=== PATIENT | female | born 2000 | race Caucasian/White ===

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

== ENCOUNTER 2018-06-29 14:47 | Emergency (ER) | payer BC ==
--- NOTE | 2018-06-29 15:57 | ED ---
Substance Abuse/Use - HPI Summary HPI Summary: This patient is a 18 year old F brought to ED via EMS with a chief complaint of alcohol intoxication since earlier today. Patient rates pain 0/10 in severity. Symptoms aggravated by nothing. Symptoms alleviated by nothing. Patient denies nausea and any pain. Patient was found lying in bathroom in vomit. Patient denies nausea and pain. Patient has an insulin pump in right gluteus. PMHx of DM , seizures, Hashimotos encephalopathy. FHx DM but no renal disease, respiratory disease, seizure disorder. Patient drinks alcohol, uses marijuana, and has never smoked tobacco. - History Of Current Complaint Chief Complaint: EDSubstanceAbuse Stated Complaint: ETOH PER EMS Time Seen by Provider: 06/29/18 15:14 Hx Obtained From: Patient Onset/Duration of Drug/ETOH Abuse: Hours Ingestion History: Type/Name Of Drug - EtOH Overdose Characteristics: Oral Severity Initially: Mild Severity Currently: None Aggravating Factor(s): Nothing Alleviating Factor(s): Nothing Associated Signs And Symptoms: Negative - Nausea, vomiting - Allergies/Home Medications Allergies/Adverse Reactions: Allergies Allergy/AdvReac Type Severity Reaction Status Date / Time No Known Allergies Allergy Verified 06/29/18 18:20 Home Medications: Home Medications Insulin Aspart [Novolog] 100 unit SC TID WITH MEALS 06/29/18 [History Confirmed 06/29/18] Levothyroxine Sodium [Synthroid] 300 mcg PO DAILY WITH MEAL 06/29/18 [History Confirmed 06/29/18] PMH/Surg Hx/FS Hx/Imm Hx Previously Healthy: No Endocrine/Hematology History: Reports: Hx Diabetes Neurological History: Reports: Hx Seizures, Other Neuro Impairments/Disorders - Nona's encephalopathy Infectious Disease History: No Infectious Disease History: Denies: Traveled Outside the [place] in Last 30 Days - Family History Known Family History: Positive: Diabetes, Respiratory Disease, Seizure Disorder - Social History Alcohol Use: Rare Hx Substance Use: Yes Substance Use Type: Reports: Marijuana Substance Use Comment - Amount & Last Used: yesterday Hx Tobacco Use: No Smoking Status (MU): Never Smoked Tobacco Review of Systems Negative: Vomiting, Nausea Psychological: Other - Alcohol intoxication All Other Systems Reviewed And Are Negative: Yes Physical Exam - Summary Physical Exam Summary: VITAL SIGNS: Reviewed. GENERAL: Patient is a well-developed and nourished female who is lying comfortable in the stretcher. Patient is not in any acute respiratory distress. EtOH intoxication. Alcohol in breath. Patient has insulin pump in right gluteus. HEAD AND FACE: No signs of trauma. No ecchymosis, hematomas or skull depressions. No sinus tenderness. EYES: PERRLA, EOMI x 2, No injected conjunctiva, no nystagmus. EARS: Hearing grossly intact. Ear canals and tympanic membranes are within normal limits. MOUTH: Oropharynx within normal limits. NECK: Supple, trachea is midline, no adenopathy, no JVD, no carotid bruit, no c- spine tenderness, neck with full ROM. CHEST: Symmetric, no tenderness at palpation LUNGS: Clear to auscultation bilaterally. No wheezing or crackles. CVS: Regular rate and rhythm, S1 and S2 present, no murmurs or gallops appreciated. ABDOMEN: Soft, non-tender. No signs of distention. No rebound no guarding, and no masses palpated. Bowel sounds are normal. EXTREMITIES: FROM in all major joints, no edema, no cyanosis or clubbing. NEURO: Alert and oriented x 3. No acute neurological deficits. Speech is normal and follows commands. Answered questions appropriately. SKIN: Dry and warm Triage Information Reviewed: Yes Vital Signs On Initial Exam: Initial Vitals Temp Pulse Resp BP Pulse Ox 97.0 F 86 16 104/72 99 06/29/18 14:49 06/29/18 14:49 06/29/18 14:49 06/29/18 14:49 06/29/18 14:49 Vital Signs Reviewed: Yes Diagnostics - Vital Signs Vital Signs Temp Pulse Resp BP Pulse Ox 06/29/18 15:07 96.6 F 80 20 114/76 96 06/29/18 14:49 97.0 F 86 16 104/72 99 - Laboratory Lab Results: Lab Results 06/29/18 Range/Units 15:28 POC Glucose (mg/dL) 245 H (70-100) mg/dL Result Diagrams: 06/29/18 15:50 06/29/18 16:26 Lab Statement: Any lab studies that have been ordered have been reviewed, and results considered in the medical decision making process. Course/Dx - Course Assessment/Plan: This patient is a 18-year-old female who presents to the emergency department via ambulance with a chief complaint of having alcohol intoxication. The patient is lethargic, alcohol in her breath however she answers appropriately to all questions. During the physical exam that the patient has an insulin pump in the right buttex. Finger stick was obtained. The patient was placed in IV fluids and in a platform power technician. Blood test results without any significant abnormality except for sodium of 134, chloride 112, carbon dioxide is 16, glucose 174, calcium is 6.1, administering so the corrected calcium is 6.9. Serum alcohol level is 178. The patients was given calcium by mouth. 4 hours later the patient is alert and oriented 3, the patient is sober and she has no other complaints. Fingerstick is 143. At this point the patient will be discharged home with follow-up with primary care physician. The patient will be discharged home with her roommates. Patient is ambulating home and drinking fluids without any nausea vomiting. - Diagnoses Provider Diagnoses: Alcohol intoxication, Hypocalcemia, Hyponatremia Discharge - Sign-Out/Discharge Documenting (check all that apply): Patient Departure - Discharge Patient Received Moderate/Deep Sedation with Procedure: No - Discharge Plan Condition: Stable Disposition: HOME Patient Education Materials: Alcohol Intoxication (ED) Referrals: [facility] [[employer] [facility], OTHER] - Additional Instructions: Follow-up with your banner in 2 days. RETURN THE ER FOR CHANGING OR WORSENING SYMPTOMS. - Billing Disposition and Condition Condition: STABLE Disposition: Home - Attestation Statements Document Initiated by An: Yes Documenting Scribe: Case Kitchen Provider For Whom An is Documenting (Include Credential): Danny Weber MD Scribe Attestation: Case Batista, scribed for Danny Weber MD on 06/29/18 at 2136. Scribe Documentation Reviewed: Yes Provider Attestation: The documentation as recorded by the Case vargas accurately reflects the service I personally performed and the decisions made by me, Danny Weber MD Status of Scribe Document: Viewed
[2018-06-29 16:17] LABS: ALT 12 U/L (7-52); Albumin/Globulin Ratio 1.4 (1-3); Alkaline Phosphatase 47 U/L (34-104); BUN/Creatinine Ratio 17.1 (8-20); Blood Urea Nitrogen 7 mg/dL (6-24); CO2 Carbon Dioxide 16 mmol/L (22-32); EGFR African American 239.3 (>60); EGFR Non-African American 197.8 (>60); Globulin 2.1 g/dL (2-4); Glucose 174 mg/dL (70-100); Sodium 134 mmol/L (135-145); Total Protein 5.1 g/dL (6.4-8.9)
[2018-06-29 16:23] LABS: Anion Gap 6 mmol/L (2-11); Calcium 6.1 mg/dL (8.6-10.3); Chloride 112 mmol/L (101-111)
[2018-06-29 16:24] LABS: ABS Lymphocytes 1.4 10^3/ul (1.0-4.8); ABS Monocytes 0.3 10^3/ul (0-0.8); ABS Neutrophils 5.3 10^3/ul (1.5-7.7); Eosinophil % 0.7 %; Hematocrit 36 % (35-47); Mean Corpuscular HGB Conc 33 g/dL (31-36); Mean Corpuscular Hemoglobin 30 pg (27-31); Mean Corpuscular Volume 91 fL (80-97); Mean Platelet Volume 8.8 fL (7.4-10.4); Platelet Count 208 10^3/uL (150-450); Red Cell Distribution Width 15 % (10.5-15); White Blood Count 7.1 10^3/uL (3.5-10.8)
[2018-06-29 16:49] LABS: TSH (Thyroid Stimulating Horm) 0.57 mcIU/mL (0.34-5.60)
[2018-06-29 17:16] LABS: Alcohol 178 mg/dL (<10); Salicylate < 2.50 mg/dL (<30)
[2018-06-29 17:17] LABS: Acetaminophen < 15 mcg/mL
[2018-06-29 17:17] LABS: Potassium Redraw 4.2 mmol/L (3.5-5.0)
[2018-06-29] MEDS ORDERED: Calcium Citrate TAB* 200 MG PO ONE (17:29)
[2018-06-29 18:47] VITALS: BP 107/64
== END 2018-06-29 18:45 | disposition home or self-care (01) ==
LOC: ED 14:47
DX: F10.129 Alcohol abuse with intoxication, unspecified (principal); E11.9 Type 2 diabetes mellitus without complications; Z79.4 Long term (current) use of insulin; E83.51 Hypocalcemia; E87.1 Hypo-osmolality and hyponatremia; Z86.69 Personal history of other diseases of the nervous system and sense organs
CPT/HCPCS: 36415; 80053; 80320; 80329; 84443; 85025; 99284; A9270-GY; G0480